=== PATIENT | female | born 1960 | race Caucasian/White ===

== ENCOUNTER 2021-02-27 10:24 | Emergency (ER) | payer BC ==
[2021-02-27 11:03] LABS: #Basophils 0.1 10x3/uL (0.0-0.2); #Eosinphils 0.2 10x3/uL (0.0-0.5); #Monocytes 0.7 10x3/uL (0.0-1.1); #Neutrophils 5.1 10x3/uL (1.5-8.4); %Eosinophils 1.9 % (0.0-6.0); %Lymphocytes 31.6 % (18.0-47.0); %Monocytes 7.6 % (0.0-10.0); %Neutrophils 57.7 % (40.0-75.0); Hemoglobin 13.4 g/dL (12.0-15.5); Mean Corpuscular HGB CONC 33.6 g/dL (32.0-36.0); Mean Corpuscular Hemoglobin 30.2 pg (27.0-33.0); Mean Corpuscular Volume 89.9 fl (81.6-98.3); Mean Platelet Volume 10.6 fl (7.4-10.4); Platelet Count 376 10x3/uL (150-450); RBC Distribution Width 13.1 % (11.5-14.5); Red Blood Cell (RBC) Count 4.44 10x6/uL (3.90-5.03); White Blood Cell (WBC) Count 8.9 10x3/uL (3.5-10.5)
[2021-02-27] MEDS ORDERED: Ketorolac Tromethamine 30 MG/ML VIAL ONE (11:18)
[2021-02-27] MEDS ORDERED: Acetaminophen 500 MG TAB ONE (11:18)
[2021-02-27 11:21] LABS: ALT (SGPT) 15 U/L (8-55); AST (SGOT) 18 U/L (5-34); Albumin 4.7 g/dL (3.5-5.0); Alkaline Phosphatase 71 U/L (40-110); Anion Gap 17 mmol/L (10-20); BUN (Urea Nitrogen) 17 mg/dL (9.8-20.1); Bilirubin, Total 0.5 mg/dL (0.2-1.2); Calc. Creatinine Clearance 0 mL/min (70-130); Calcium 9.9 mg/dL (7.8-10.44); Carbon Dioxide 21 mmol/L (22-29); Chloride 104 mmol/L (98-107); Globulin 2.6 g/dL (2.4-3.5); Glucose 92 mg/dL (70-105); Potassium 4.1 mmol/L (3.5-5.1); Protein, Total 7.3 g/dL (6.0-8.3); Sodium 138 mmol/L (136-145)
== END 2021-02-27 12:20 | disposition home or self-care (01) ==
LOC: CSHERS 10:24
DX: R07.81 Pleurodynia (principal); R03.0 Elevated blood-pressure reading, without diagnosis of hypertension
CPT/HCPCS: 71045; 80053; 84484; 85025; 85379; 93005; 96374; J1885